=== PATIENT | male | born 1980 | race Hispanic/Latino ===

== ENCOUNTER 2020-11-20 10:19 | Inpatient (IN) | payer SELFPAY ==
[~2020-11-20] VITALS: Ht 170.2 cm; Wt 57.0 kg
[2020-11-20] MEDS ORDERED: MORPHINE SULFATE 4 MG/1ML SYG ONE ×2 (10:29→11:45)
[2020-11-20] MEDS ORDERED: ONDANSETRON HCL 4 MG/2 ML VIAL ONE (10:29)
[2020-11-20 10:54] LABS: BASOPHILS % (AUTO) 0.6 % (0.0-5.0); EOSINOPHILS % (AUTO) 2.6 % (0.0-8.0); HEMATOCRIT 46.9 % (42-54); LYMPHOCYTES % (AUTO) 25.1 % (21.0-51.0); MEAN CORPUSCULAR HEMOGLOBIN 30.1 pg (27.0-33.0); MEAN CORPUSCULAR HGB CONC 32.6 g/dL (32.0-36.0); MEAN CORPUSCULAR VOLUME 92.3 fL (79-99); MONOCYTES % (AUTO) 8.3 % (3.0-13.0); NEUTROPHILS % (AUTO) 63.3 % (40.0-77.0); PLATELET COUNT (AUTO) 323 K/uL (130-400); RED BLOOD CELL COUNT(AUTO) 5.08 MIL/uL (4.50-6.20); RED CELL DISTRIBUTION WIDTH 13.9 % (11.0-15.5); WHITE BLOOD COUNT (AUTO) 7.2 K/uL (4.8-10.8)
[2020-11-20 11:06] LABS: CREATININE 0.9 mg/dL (0.5-1.5); POTASSIUM 4.2 mmol/L (3.5-5.1)
[2020-11-20 11:10] LABS: ALBUMIN 4.1 g/dL (3.5-5.0); BILIRUBIN,TOTAL 1.1 mg/dL (0.2-1.0); TOTAL PROTEIN, SERUM 7.7 g/dL (6.0-8.3)
[2020-11-20] MEDS ORDERED: CEFAZOLIN SODIUM 1 GM VIAL ONE (11:47)
[2020-11-20] MEDS ORDERED: ACETAMINOPHEN-CODEINE 300/30MG TAB PO PRN (15:15)
[2020-11-20] MEDS ORDERED: MORPHINE SULFATE 2 MG/ML 1ML SYG IVP PRN (15:15)
[2020-11-20 19:43] VITALS: BP 127/77
[2020-11-20] MEDS: CEFAZOLIN SODIUM 1 GM VIAL IVP SCH (20:35)
[2020-11-20 23:55] VITALS: BP 107/67
[2020-11-21] VITALS (22 sets, daily range): BP systolic 104–136; BP diastolic 53–91
[2020-11-21] MEDS: CEFAZOLIN SODIUM 1 GM VIAL IVP SCH ×2 (04:29→11:42)
[2020-11-21] MEDS ORDERED: FENTANYL CITRATE PF 50 MCG/1 ML 2ML VIAL ONE (12:05)
[2020-11-21] MEDS ORDERED: PROPOFOL 10 MG/ML 20ML VIAL IV ONE (12:05)
[2020-11-21] MEDS ORDERED: MIDAZOLAM HCL 1 MG/ML 2ML VIAL ONE (12:05)
[2020-11-21] MEDS ORDERED: LIDOCAINE PF 2% 5ML ABBOJECT ONE (12:05)
[2020-11-21] MEDS ORDERED: CEFAZOLIN SODIUM 1 GM VIAL ONE (12:29)
[2020-11-21] MEDS ORDERED: ONDANSETRON HCL 4 MG/2 ML VIAL ONE (12:44)
[2020-11-21] MEDS ORDERED: DEXAMETHASONE SOD PHOSPHATE 4 MG/ML 1ML VIAL ONE (12:44)
[2020-11-21] MEDS ORDERED: MEPERIDINE-PF 25 MG/ML SYG ONE (13:13)
== END 2020-11-21 18:00 | disposition home or self-care (01) | DRG 514 ==
LOC: EDH 10:19 → EDHIP 10:20 → 3BH 19:02
PROVIDERS: ADMIT Surgery Plastic and Reconstructive Surgery; ATTEND Surgery Plastic and Reconstructive Surgery
PROC: 0LQ70ZZ Repair Right Hand Tendon, Open Approach (ICD-10-PCS; 2020-11-21)
PROC: 0LQ70ZZ Repair Right Hand Tendon, Open Approach (ICD-10-PCS; principal; 2020-11-21 12:09)
DX: S66.320A Laceration of extensor muscle, fascia and tendon of right index finger at wrist and hand level, initial encounter (principal); S66.322A Laceration of extensor muscle, fascia and tendon of right middle finger at wrist and hand level, initial encounter; X58.XXXA Exposure to other specified factors, initial encounter; Y93.89 Activity, other specified; Y92.89 Other specified places as the place of occurrence of the external cause; Y99.8 Other external cause status
CPT/HCPCS: 36415; 73130; 80053; 85025; 86900; 86901; G0378; J0690; J1100; J2001; J2175; J2250; J2270; J2405; J2704; J3010

== ENCOUNTER 2020-11-23 08:55 | Emergency (ER) | payer SELFPAY ==
[2020-11-23] MEDS ORDERED: TRAMADOL HCL 50 MG TABLET ONE (09:08)
== END 2020-11-23 09:19 | disposition home or self-care (01) ==
LOC: EDH 08:55
DX: G89.18 Other acute postprocedural pain (principal); M79.631 Pain in right forearm; Z98.890 Other specified postprocedural states; Z72.0 Tobacco use